=== PATIENT | male | born 1965 | race Caucasian/White ===

== ENCOUNTER 2025-05-25 15:11 | Emergency (ER) | payer OTHER, SELFPAY ==
[2025-05-25 15:14] VITALS: BP 171/89
[2025-05-25 15:18] LABS: Glucose - Point of Care 382 mg/dl (70-99)
[2025-05-25 15:37] LABS: Venous Blood Gas B.E. -4.2 mmol/L (-4 to +4); Venous Blood Gas O2 Sat % 67.0 %
[2025-05-25 15:38] LABS: Venous Blood Gas O2 Therapy ROOM AIR
[2025-05-25 15:50] LABS: Hematocrit 47.1 % (39.0-52.0); Hemoglobin 15.8 g/dL (13.0-18.0); Mean Corp Hgb Conc. 33.5 g/dL (33.0-37.0); Mean Corpuscular Volume 82.5 fL (80.0-94.0); Nucleated Red Blood Cells % 0 % (-); Platelet Count 131 10^3/uL (130-400); Red Cell Dist. Width 14.5 % (11.5-14.5)
[2025-05-25 15:51] LABS: ALT (SGPT) 45 U/L (0-50); AST (SGOT) 51 U/L (17-59); Albumin 4.5 g/dl (3.5-5.0); Alkaline Phosphatase 86 U/L (38-126); Blood Urea Nitrogen 11 mg/dl (9-20); Calcium 9.6 mg/dl (8.4-10.2); Carbon Dioxide 23 mmol/L (22-30); Chloride 97 mmol/L (98-107); Glucose 410 mg/dl (70-99); Potassium 4.9 mmol/L (3.5-5.1); Sodium 133 mmol/L (135-145); Total Protein 8.0 g/dl (6.3-8.2); eGFR > 60.00
--- NOTE | 2025-05-25 16:14 | ED.GENMED ---
History of Present Illness
General
Chief Complaint: Blood Sugar Problem
Source: patient
Exam Limitations: none
Time Seen by Provider: 05/25/25 16:04
Nursing documentation reviewed up to this point in time: agreed with
History of Present Illness
History of Present Illness:
59-year-old male with history as noted significant for diabetes, distant history of alcohol use (7 years sober) who presents to the ER for evaluation of fatigue and hyperglycemia. Patient reports that over the past few days he has had increased
fatigue, polydipsia and polyuria. He checked his blood sugar and noted that it was very high today over 400 which prompted him to come to the ER. He admits that he has been stressed recently trying to find a new job. He says that for this reason
he has not been eating very well�he cites frequently snacking on things like Tastycakes. He admits that over the past few days he has missed his doses of metformin�typically takes 1000 mg twice daily. He has not been sick recently denies any
recent fever or chills or any other symptoms. He follows with Dr. Villa for primary care and management of his diabetes.
Past History
Past History
ED Past Medical History: HTN, NIDDM, Hypothyroidism and Other (BPH)
ED Past Surgical History: Other (hernia sx )
Social History
Tobacco: Non-smoker
Alcohol: Daily
Drug: None
Personal: Single
Living: with family
Employment: Employed
Family History
Family History: Other
Review of Systems
Review of Systems
All Other Systems: ROS reviewed and negative except as documented in HPI and ROS
Constitutional: Reports fatigue; Denies fever
Respiratory: Denies cough or trouble breathing
Cardiac: Denies chest pain
ABD/GI: Denies abdominal pain, nausea or vomiting
: Denies flank pain
Musculoskeletal: Denies neck pain or back pain
Neurological: Denies dizzy or headache
Endocrine: Reports polyuria and polydipsia
Phy Exam
Physical Exam
Physical Exam:
General: Awake, alert, oriented x3; no acute distress
Head: Normocephalic, atraumatic
Eyes: Conjunctiva normal, sclera anicteric
Throat: Airway intact, handling secretions
Neck: Trachea midline, supple without meningismus
Lungs: Clear to auscultation bilaterally, no wheezing, rales, rhonchi
Heart: Regular rate and rhythm, no murmurs, gallops, or rubs
Abd: Soft, non distended, nontender
Neuro: Grossly intact
Extremities: Warm and well-perfused
Scores
Heart Failure Risk
Heart Failure Risk Score: Not Applicable
Heart Score for Chest Pain Patients
STEMI patient?: Not applicable
Withdrawal Assessment of Alcohol
Withdrawal Assessment Completed?: Not applicable
Course
Orders/Labs/Results
Orders:
Orders
05/25/25 15:22
B-Hydroxybutyrate Urgent
Complete Blood Count/With Diff Urgent
Comprehensive Metabolic Panel Urgent
Lactic Acid Urgent
Venous Blood Gas Urgent
%Oxygen/Room Air: room air
05/25/25 16:05
Insulin Aspart [NOVOLOG vial] 5 units SC NOW STA
05/25/25 16:06
0.9% Sodium Chloride 1000 ml [Nss] 1,000 ml IV BOLUS
05/25/25 18:30
Basic Metabolic Panel Urgent
Lactate Level [Lactic Acid] Urgent
Venous Blood Gas Urgent
%Oxygen/Room Air: 99%
Abnormal Lab Results
05/25/25 05/25/25 05/25/25
15:16 15:22 17:41
VBG pH 7.25 L
(7.32-7.43)
VBG pCO2 55 H mmHg
(35-48)
Sodium 133 L mmol/L
(135-145)
Chloride 97 L mmol/L
(98-107)
Creatinine 0.6 L mg/dL
(0.7-1.3)
Glucose 410 H mg/dl
(70-99)
Lactic Acid 4.4 H* mmol/L
(0.7-2.0)
Total Bilirubin 1.5 H mg/dl
(0.2-1.3)
B-Hydroxybutyrate 0.99 H mmol/L
(0.02-0.27)
POC Glucose 382 H mg/dl 304 H mg/dl
(70-99) (70-99)
05/25/25
18:30
VBG pH
VBG pCO2
Sodium 132 L mmol/L
(135-145)
Chloride
Creatinine 0.5 L mg/dL
(0.7-1.3)
Glucose 283 H mg/dl
(70-99)
Lactic Acid
Total Bilirubin
B-Hydroxybutyrate
POC Glucose
05/25/25 15:22
05/25/25 18:30
Vital Signs
Initial and Last Documented VS:
Initial Vital Signs
Temp Pulse Resp BP Pulse Ox
36.3 C 99 20 171/89 99
05/25/25 15:14 05/25/25 15:14 05/25/25 15:14 05/25/25 15:14 05/25/25 15:14
Last Documented Vital Signs
Temp Pulse Resp BP Pulse Ox
36.3 C 95 19 171/89 98
05/25/25 15:14 05/25/25 16:35 05/25/25 16:35 05/25/25 15:14 05/25/25 16:35
MDM/Problems Addressed
Differential Diagnosis Includes:
Hyperglycemia, DKA, HHNK
MDM/Problems Addressed:
59-year-old male presents for evaluation of fatigue, polyuria and polydipsia, noted to have high sugar at home in the setting of recent dietary indiscretions and metformin noncompliance. Hypertensive otherwise acceptable vitals. Physical exam as
above. He had lab work sent in triage including a CBC which showed no clinically significant abnormalities. His CMP shows pseudohyponatremia with hyperglycemia with a glucose of 410. Acceptable renal function. He has no acidosis, no anion gap,
acceptable potassium level. Beta hydroxybutyrate marginal. VBG shows marginal acidosis. He did have a lactate sent off in triage which was elevated�unclear clinical significance could be related to metformin use chronically; he has no symptoms of
infection. Overall nothing to suggest diabetic ketoacidosis at this point. Will plan to treat with fluids and insulin. Will repeat labs after some resuscitation and reassess. Will need to discuss with his primary regarding follow-up plan and
adjustments to meds.
After fluids and subcutaneous insulin glucose greatly improved now to 83 on repeat labs. Remains without acidosis or anion gap on repeat chemistry. Repeat VBG shows normalization of pH. Lactate normalized. At this point stable for discharge. I
spoke with his primary doctor they will follow-up with him tomorrow. I stressed the importance of compliance with his metformin and avoidance of simple carbohydrates and other foods that will spike his blood sugar. He indicated understanding and
feels very comfortable with this. Spoke about return precautions and all questions answered.
Chronic conditions affecting care:
Obesity, diabetes
*Pulse Oximetry
SaO2: 99
Oxygen Mode of Delivery: Room air
Patient hypoxic: no (99%)
*Critical Care Note
Total Time (30-74mins, 75-104mins- exclusive of procedures): Not Applicable
Data Reviewed
Review of Other/Old Records Reveals: Labs and Records
Source: patient and records
Patient Management
Discussion with other providers: PCP (Discussed with patient's primary care physician)
ED Attending Note
-
Portions of this chart may have been created with voice recognition software.� Occasional wrong word or��sound alike� substitutions may have occurred due to the inherent limitations of voice recognition software.
Discharge Plan
Departure
Patient Disposition: Home (Routine Discharge)
Date of Disposition: 05/25/25
Time of Disposition: 19:18
Patient with high blood pressure during this ER visit?: Yes
Discharge Problem:
Hyperglycemia, Hypertension
Instructions: High blood sugar in adults - ED (DC)
Prescriptions:
No Action
losartan 50 MG tablet
100 mg PO DAILY
metformin 1,000 MG tablet
1,000 mg PO BID
docosahexaenoic acid-epa 1 CAP capsule
2 cap PO DAILY
clonidine HCl 0.1 MG tablet
0.1 mg PO BID
levothyroxine 125 MCG tablet
250 mcg PO DAILY
escitalopram oxalate 20 MG tablet
20 mg PO DAILY
zolpidem 12.5 MG tablet,ext release multiphase
12.5 mg PO HSPRN PRN (Reason: sleep)
gabapentin 300 MG capsule
300 mg PO TID Qty: 90 0RF
folic acid 1 MG tablet
1 mg PO DAILY Qty: 7 0RF
cholecalciferol (vitamin D3) 2,000 UNITS tablet
2,000 units PO DAILY 0RF
chlordiazepoxide HCl 10 MG capsule
10 mg PO TID Qty: 12 0RF
Multi M Vitamin Tablet
1 tab DAILY
Referrals:
Dhaval Villa DO [[facility]] - Call in 1-3 days for appt
Activity Restrictions/Additional Instructions:
It is very important that you take your metformin as prescribed. You should avoid simple carbohydrates and snacking between meals and monitor your blood sugar very closely for the next few days. You should receive a call from your primary doctor
tomorrow to follow-up�if you do not receive a call by the early afternoon please call to ensure a follow-up appointment within the next few days.
Thank you for visiting the Emergency Department at [facility].
1. Please schedule a follow up appointment as directed. Call first thing tomorrow morning to make an appointment.
2. If indicated, please take your medications as instructed and indicated on discharge paperwork.
3. If any of your symptoms do not improve, or persist, or become more severe within 6-12 hours, please return to the emergency department for further care.
4. Please return to the emergency department if you develop a headache, neck pain/stiffness, fever greater than 100.4F, chest pain, shortness of breath, persistent nausea, vomiting, slurred speech, difficulty walking, numbness/tingling, weakness,
signs of infection or any other symptoms that are worrisome to you.
Please call [phone] if you have any questions.
Interventions
Interventions:
*General Assessment Last Done: 05/25/25 15:14
*ED- Fall Risk Assessment Last Done: 05/25/25 16:36
*ED COVID-19 Vaccine History Last Done: 05/25/25 16:36
ED- Neurological Assessment Last Done: 05/25/25 16:36
Discharge Date and Time
Print Language: BULGARIAN
[2025-05-25 16:35] VITALS: BP 137/72
[2025-05-25] MEDS: NOVOLOG vial 5 UNITS SC (16:40)
[2025-05-25] MEDS: NSS 1000 IV (16:43)
[2025-05-25 17:00] VITALS: BP 140/76
[2025-05-25 17:43] LABS: Glucose - Point of Care 304 mg/dl (70-99)
[2025-05-25 18:00] VITALS: BP 133/84
[2025-05-25 18:38] LABS: Venous Blood Gas B.E. 0.5 mmol/L (-4 to +4); Venous Blood Gas O2 Sat % 60.1 %
[2025-05-25 18:50] LABS: Venous Blood Gas O2 Therapy 99%
[2025-05-25 18:53] LABS: Blood Urea Nitrogen 10 mg/dl (9-20); Calcium 8.6 mg/dl (8.4-10.2); Carbon Dioxide 25 mmol/L (22-30); Chloride 101 mmol/L (98-107); Glucose 283 mg/dl (70-99); Potassium 4.2 mmol/L (3.5-5.1); Sodium 132 mmol/L (135-145); eGFR > 60.00
[2025-05-25 19:00] VITALS: BP 153/92
== END 2025-05-25 19:36 | disposition home or self-care (01) ==
LOC: EMR 15:11
PROVIDERS: Emergency Medicine; EMERGENCY PHYSICIAN Emergency Medicine
DX: E11.65 Type 2 diabetes mellitus with hyperglycemia (principal); I10 Essential (primary) hypertension; E03.9 Hypothyroidism, unspecified; E66.9 Obesity, unspecified; N40.0 Benign prostatic hyperplasia without lower urinary tract symptoms; Z79.84 Long term (current) use of oral hypoglycemic drugs; Z91.118 Patient's noncompliance with dietary regimen for other reason; T38.3X6A Underdosing of insulin and oral hypoglycemic [antidiabetic] drugs, initial encounter; Z91.148 Patient's other noncompliance with medication regimen for other reason
CPT/HCPCS: 99284; 96360; 96372; 80048; 80053; 82010; 82805; 82962; 83605; 85025

== ENCOUNTER → 2025-06-20 13:16 | Outpatient (REF) | payer OTHER, SELFPAY ==
--- NOTE | 2025-06-10 12:11 | PN.DIAED02 ---
Referral
DSME Class Series Code: [id number]
Referred For: Diabetes Self-Management Training, Medical Nutrition Therapy, Self-Blood Glucose Monitoring, Long-Term Complication Instruction, Accute Complication Instruction, Continuous Glucose Monitoring, Medication management, Care Coordination,
Disease Management
PHI Release Authorization Form Signed: Yes
Demographic
(1) Type 2 diabetes mellitus with hyperglycemia
Status: Chronic Onset Date: ~06/14/15
Qualifiers:
Diabetes mellitus penitentiary insulin use: without penitentiary use Qualified Code(s): E11.65 - Type 2 diabetes mellitus with hyperglycemia
Code(s): E11.65 - Type 2 diabetes mellitus with hyperglycemia
Patient's primary language-: Bengali
Education: High school/GED
Occupation: Vocational/Trade
Hours Worked/Week: 20-40
Shift: Day
- Social
Primary Support Person: Self
Primary Care Takers: Self
Living Arrangements: Self
- Learning Methods
Preferred Method: Hands-on demonstration
Barriers to Learning: None
Glycemic Control
- Blood Glucose Monitoring Assessment
Date: 06/10/25
Blood glucose monitoring at home: Yes
Monitor Brands: Accu-Chek
Frequency: 3x per day
Time: fasting, after lunch, after dinner
- Hyperglycemia Assessment
Experiences Hyperglycemia: Yes
Frequency: 1-3x per week (polydipsia, PERRY)
- Hypoglycemia Assessment
Patient carries glucose source: No
Patient experiences hypoglycemia: Yes (experienced at diagnosis, BS 41)
Patient has required treatment by others: Yes
- Blood Glucose Monitoring Results
Source: log book (FBS 320, 2 HR PP LUNCH 241-351, 2 HR PP DINNER 271)
- Hemoglobin A1c
Date: 02/12/25
A1C Percentage (%): 7.3
Medical History of Diabetes
Previous Diabetes Education: Yes
How long ago?: 1-5 years ago (AT PCP OFFICE)
Previous visit with Dietitian: No
Complications/Comorbidity/Specialist: Autoimmune (hypothyroid: levothyroxine 112 mcg), Hypertension (losartan potassium 25 mg QD, clonidine 0.1 mg BID), Hyperlipidemia (Atorvastatin 10 mg QD, fish Oil QD), Metabolic (DM2: METFORMIN 1000 MG BID),
Pulmonary disease (JORGE (Wears CPAP)), Other / symptoms (Adderall 10 mg QD, 20 mg BID, Lexapro 20 mg QD, Seroquel 100 mg QD, Zolpidem 12.5 mg QD)
Measures
- Anthropometrics
Height: 5 ft 10 in
Actual Weight: 300 lb 9.6 oz
- Blood Pressure / Pulse
Blood pressure: 128/70
Pulse: 70
- Diabetes Management
Medical Management for Diabetes: Complete physical exam (02/12/2025), Dental exam (09/18/2024), Dilated eye exam (08/18/2024), Foot exam (06/27/2020), Pneumonia vaccination (06/01/2025)
Self-Care
- Tobacco Usage
Do you now, or have you ever smoked?: Never smoked
- Alcohol & Drugs Usage
Drinks Alcohol: No (former ETOH abuse, sober 8 years)
- Meals & Dining
Meals & Dining: Patient skips meals: No, Food Intolerance / Allergy: No, Cultural / Gnosticist Dietary Needs: No
Primary Food Ski Production Supervisor: Self
Primary Bioinformatics Support Specialist: Self
Dining Out Frequency: 4-6x per week
- Physical Activity
Physical Limitation: No
Patient participates in physical Activity: No
- Patient-Self Assessment
Diabetes Knowledge: Fair
Feelings About Diabetes: Acceptance
General Health: Good
Importance of Health: Extremely
Stress Level: Low
Diabetes Interferes With:: Sports/exercise
Barriers to Diabetes Management: Nothing
Depression Survey Score: 0
- Diabetes Identification
Carries Diabetes Identification: No
Diabetes Identification Information Provided: Yes
Care Plan
- Education Needs
Patient Education Needs: Diabetes disease process, Chronic complications, Acute complications, Medication, Monitoring, Physical activity, Psychosocial Adjustment, Nutritional management, Goal setting & problem solving
Recommended Diabetes Training Program based on assessment: Outpatient Diabetes Education Program
- Plan of Care
Plan of Care:
06/10/2025 DSME INITIAL CONSULTATION
Met with participant today for registration and initiation of Diabetes Self-management. He was accompanied by his friend Raymon Duenas. Pt was recommended by a friend, his A1c in February was 7.3%. On May 28 he was in the ER with HTN and
hyperglycemia of 410 mg/dL. He currently takes 1000 mg Metformin BID. He states this summer he got off track wtih the medication, was experiencing depression and eating poorly.
He is monitoring his blood sugar fasting, 2 hours after lunch and dinner. FBS was 320, 2 hours PP lunch 241, 2 hours PP dinner was 271. Demonstrated how to monitor glucose today, blood sugar was 351 after eating yogurt and coffee. He states last
night he had very large quantity of trail mix with peanuts, dried fruit and dark chocolate. Discussed decreasing portions and eliminating dried fruit as this is a concentrated sugar. Also recommended he drink at least 8 glasses of water a day and
begin walking with progression up to 30 minutes a day. He has not been exercising, will be more active with a new job next week working 8am - 12pm.
I spoke to the nurse at his PCP's office: Dr. Dhaval Villa. Reported blood sugar levels, she states they are aware and he has a follow up on 08/02/2025.
We reviewed complications of diabetes, fasting and 2 hour post prandial glucose goals, signs and symptoms of hyperglycemia, signs and symptoms of hypoglycemia, and hypoglycemia protocol. Provided him with a glucose log, asked him to write down his
glucose numbers and encouraged him to contact our office to discuss in further detail.
I reviewed and provided diabetes management booklet, insurance billing code and advised he contact her health plan to discuss coverage and cost. glucose testing supplies. He verbalized understanding.
He has phone # for office if additional needs arise prior to class.
--- NOTE | 2025-06-10 12:45 | PN.DIAED04 ---
Education Record
- Education Record
Class Attended: Other (DSME INITIAL CONSULTATION)
DSME Class Series Code: [id number]
Instructor: Registered Nurse (Elizabeth Alicia RN)
Pre-Program Knowledge: Needs review / Assistance
Pre-Test Score (%): 79
Goals
- Goal 1
Being Active: Exercise 15 minutes-3 times per week (will garden and walk)
Goals To Be Evaluated: Exercise 15 mins-3x/week
- Goal 2
Healthy Eating: Reduce portion sizes (states he already started adjusting diet)
Goals To Be Evaluated: Reduce portion sizes
- Goal 3
Monitoring: Monitor more often
Goals To Be Evaluated: Monitor more often
--- NOTE | 2025-06-21 14:14 | PN.DIAED14 ---
This is to notify you that your patient with diabetes, ODALIS GARCÍA ( 1965), has enrolled in our diabetes self-management classes that are being held at [facility].
These classes will include an introduction to diabetes, diet, medication, exercise and prevention of complications. At the end of our class series, you will receive a report of your patient's participation and progress for your records.
Please contact me at the Diabetes Center, , if there is any particular information regarding your patient that might be helpful to me.
Sincerely,
Luke FLEMING-CHANTEL, [facility]
--- NOTE | 2025-06-21 14:15 | PN.DIAED04 ---
Education Record
- Education Record
Class Attended: Class 1
DSME Class Series Code: [id number]
Instructor: Registered Nurse (Elizabeth Alicia RN)
Class Curriculum:
Outpatient Diabetes Education Program:
Class 1 (120 minutes)
Describe the diabetes disease process and treatment options
Diabetes management
Develop personal strategies to promote health and behavior change
Integrate psychosocial adjustment for daily living
Monitor blood glucose and other parameters. Interpret and use the results for self-management decision making
Prevent, detect, and treat acute complications
Class Length (mins): 120
Post-Class 1 Test Score (%): 100
== END ==
LOC: DES 13:16
PROVIDERS: ATTENDING PHYSICIAN Family Medicine
DX: E11.69 Type 2 diabetes mellitus with other specified complication (principal); E11.29 Type 2 diabetes mellitus with other diabetic kidney complication
CPT/HCPCS: 99078

== ENCOUNTER → 2025-06-27 08:46 | Outpatient (REF) | payer OTHER, SELFPAY ==
--- NOTE | 2025-06-28 09:58 | PN.DIAED04 ---
Education Record
- Education Record
Class Attended: Class 2
DSME Class Series Code: [id number]
Instructor: Registered Dietitian (Thao Ozuna, RD, LDN, CDE)
Class Curriculum:
Outpatient Diabetes Education Program:
Class 2 (120 minutes)
Incorporate nutritional management into lifestyle
Understanding nutritional value
Understanding carbohydrate counting
Class Length (mins): 120
== END ==
LOC: DES 08:46
PROVIDERS: ATTENDING PHYSICIAN Family Medicine
DX: E11.69 Type 2 diabetes mellitus with other specified complication (principal)
CPT/HCPCS: 99078

== ENCOUNTER → 2025-07-04 13:13 | Outpatient (REF) | payer OTHER, SELFPAY | LOC: DES 13:13 | PROVIDERS: ATTENDING PHYSICIAN Family Medicine | DX: E11.69 Type 2 diabetes mellitus with other specified complication (principal) | CPT/HCPCS: 99078 ==

== ENCOUNTER → 2025-07-18 09:26 | Outpatient (REF) | payer OTHER, SELFPAY ==
--- NOTE | 2025-07-20 11:43 | PN.DIAED04 ---
Education Record
- Education Record
Class Attended: Class 5
DSME Class Series Code: [id number]
Instructor: Registered Nurse (Elizabeth Alicia RN)
Class Curriculum:
Outpatient Diabetes Education Program:
Class 5 (120 minutes)
Prevent, detect, and treat acute complications
Prevent, detect, and treat chronic complications through risk reduction
Develop personal strategies to address psychosocial issues and concerns
Development of diabetes self-management support plan
Letter to physician with DSMS plan attached sent
Class Length (mins): 120
Post-Program Knowledge: Demonstrates competency
Post-Test Score (%): 83
Post-Program Assessment
- Post-Program Assessment
Actual Weight: 301 lb 9.6 oz
Blood pressure: 120/70
Post-Program Depression Survey Score: 1
Reviewing Previous Goals?: Yes
Pre-Program Depression Survey Score: 0
- Goals 1 Evaluation
Goals To Be Evaluated: Exercise 15 mins-3x/week
- Goals 2 Evaluation
Goals To Be Evaluated: Reduce portion sizes
- Goals 3 Evaluation
Goals To Be Evaluated: Monitor more often
--- NOTE | 2025-07-20 11:44 | PN.DIAED20 ---
<Keri Mesa - Last Filed: 07/20/25 11:44>
This is to notify you that your patient with diabetes, ODALIS GARCÍA ( 1965), has attended the following Diabetes Self-Management Education Classes.
_X_ Class 1 (120 minutes): Diabetes Overview - monitoring, stress/psychosocial adjustment, support, goal setting
_X_ Class 2 (120 minutes): Meal Planning - serving sizes, menu plans
_X_ Class 3 (120 minutes): Introduction to Carbohydrate Counting, Analyzing Food Labels
_Offered make up class_ Class 4 (120 minutes): Medication, Exercise and Activity
_X_ Class 5 (120 minutes): Sick Day Management, Strategies to Reduce Complications, Problem Solving, Resources
The following behavioral goals were identified:
Goal #1: Exercise 15 mins-3x/week
Goal #2: Reduce portion sizes
Goal #3: Monitor more often
A follow-up call will be made within three to six months to evaluate attainment of these goals and to check post-program Hemoglobin A1c and overall progress. All class participants are encouraged to contact me if I can be any further assistance in
learning how to manage their diabetes.
Sincerely,
Luke [facility], [facility]
<Nitza Her - Last Filed: 07/20/25 12:46>
This is to notify you that your patient with diabetes, ODALIS GARCÍA ( 1965), has attended the following Diabetes Self-Management Education Classes.
_X_ Class 1 (120 minutes): Diabetes Overview - monitoring, stress/psychosocial adjustment, support, goal setting
_X_ Class 2 (120 minutes): Meal Planning - serving sizes, menu plans
_X_ Class 3 (120 minutes): Introduction to Carbohydrate Counting, Analyzing Food Labels
_Offered Make Up Class_ Class 4 (120 minutes): Medication, Exercise and Activity
__X Class 5 (120 minutes): Sick Day Management, Strategies to Reduce Complications, Problem Solving, Resources
The following behavioral goals were identified:
Exercise 15 mins-3x/week
Reduce portion sizes
Monitor more often
A follow-up call will be made within three to six months to evaluate attainment of these goals and to check post-program Hemoglobin A1c and overall progress. All class participants are encouraged to contact me if I can be any further assistance in
learning how to manage their diabetes.
Sincerely,
== END ==
LOC: DES 09:26
PROVIDERS: ATTENDING PHYSICIAN Family Medicine
DX: E11.69 Type 2 diabetes mellitus with other specified complication (principal)
CPT/HCPCS: 99078